=== PATIENT | female | born 1930 | race Caucasian/White ===

== ENCOUNTER 2018-02-09 19:57 | Emergency (ER) | payer MEDICARE, BC ==
[~2018-02-09] VITALS: Ht 165.1 cm; Wt 71.7 kg
[2018-02-09] MEDS ORDERED: HYDROCODONE/APAP 5/325MG 1 EACH TABLET PO ONE (20:00)
--- NOTE | 2018-02-09 20:03 | NUR ---
PT BIB [facility] WITH A C/O LLE SPASM FOR 45 BIG DATA ADMIN. PT IS NOT ABLE TO WALK AND CAN NOT FEEL HER LEG.
--- NOTE | 2018-02-09 20:08 | NUR ---
PT'S LLE STILL SPASMING.
--- NOTE | 2018-02-09 20:08 | NUR ---
PT REFUSED NORCO. PT STATED THAT SHE DOES NOT HAVE PAIN.
--- NOTE | 2018-02-09 20:08 | NUR ---
CALLED PATIENT'S SON ROSSI HE DID NOT ANSWER SO I LEFT A VOICEMAIL WITH CALL BACK NUMBER.
--- NOTE | 2018-02-09 20:10 | NUR ---
NEW IV STARTED ON RAC, 20G. BLOOD DRAWN AND SENT TO LAB.
[2018-02-09 20:20] LABS: BASOPHILS % (AUTO) 0.3 % (0.0-2.0); EOSINOPHILS % (AUTO) 0.9 % (0.0-6.0); HEMATOCRIT 41 % (33-45); HEMOGLOBIN 13.9 g/dL (11.5-14.8); LYMPHOCYTES # (AUTO) 1.9 /CMM (0.8-4.8); LYMPHOCYTES % (AUTO) 19.8 % (20.0-44.0); MEAN CORPUSCULAR HGB CONC 34 g/dl (31.0-36.0); MEAN CORPUSCULAR VOLUME 92 fL (82-100); MONOCYTES # (AUTO) 1.5 /CMM (0.1-1.30); MONOCYTES % (AUTO) 15.6 % (2.0-12.0); NEUTROPHILS # (AUTO) 6.1 /CMM (1.8-8.9); NEUTROPHILS % (AUTO) 63.4 % (43.0-81.0); PLATELET COUNT (AUTO) 195 /CMM (150-450); RDW COEFFICIENT OF VARIATION 15.1 (11.5-15.0); RED BLOOD CELL COUNT(AUTO) 4.48 MIL/uL (4.0-5.2); WHITE BLOOD COUNT (AUTO) 9.6 K/uL (4.3-11.0)
[2018-02-09 20:27] LABS: CARBON DIOXIDE 31 mmol/L (21-32); CHLORIDE 107 mmol/L (98-107); CREATININE 1.2 mg/dL (0.6-1.3); GLUCOSE 116 mg/dL (74-106); POTASSIUM 4.5 mmol/L (3.5-5.1); SODIUM SERUM 144 mmol/L (136-145); UREA NITROGEN, BLOOD 18 mg/dL (7-18)
[2018-02-09] MEDS ORDERED: LORAZEPAM INJ 2 MG/ML VIAL ONE (20:28)
[2018-02-09] MEDS ORDERED: LORAZEPAM INJ 2 MG/ML VIAL IV ONE (20:30)
--- NOTE | 2018-02-09 20:50 | NUR ---
PT IS C/O LLE CALF CRAMPING PAIN WITH SPASM. PT'S CALF WAS MASSAGED.
[2018-02-09] MEDS ORDERED: DEXAMETHASONE SOD PHOSPHATE 10 MG/ML VIAL ONE (20:57)
[2018-02-09] MEDS ORDERED: KETOROLAC TROMETHAMINE INJ 30 MG/ML VIAL ONE (20:58)
--- NOTE | 2018-02-09 20:58 | NUR ---
PT REC'D MEDICATION ORDERED.
[2018-02-09] MEDS ORDERED: KETOROLAC TROMETHAMINE INJ 30 MG/ML VIAL IV ONE (21:00)
[2018-02-09] MEDS ORDERED: DEXAMETHASONE SOD PHOSPHATE 10 MG/ML VIAL IV ONE (21:00)
--- NOTE | 2018-02-09 21:05 | NUR ---
PT LEFT FOR CT VIA [facility]
--- NOTE | 2018-02-09 21:07 | NUR ---
CALLED PT'S SON ROSSI AT [phone], NO ANSWER, LEFT VOICEMAIL
--- NOTE | 2018-02-09 21:08 | NUR ---
PT IS C/O LLE CALF CRAMPING WITH SPASM.
[2018-02-09 21:25] LABS: BAND % (MANUAL) 3 % (0.0-5.0); BASOPHILS % (MANUAL) 0 % (0.0-2.0); EOSINOPHILS % (MANUAL) 1 % (0-4); LYMPHOCYTES % (MANUAL) 22 % (16-48); MONOCYTES % (MANUAL) 11 % (0-11.0); NEUTROPHILS % (MANUAL) 63 (42-76)
--- NOTE | 2018-02-09 21:30 | NUR ---
PT WAS C/O LEG CRAMP WITH THE SPASM. LLE (CALF) MASSAGED. CRAMP SUBSIDED.
--- NOTE | 2018-02-09 21:50 | NUR ---
PT'S SON, ROSSI, CALLED BACK. PER THE PT'S REQUEST, ROSSI WAS NOTIFIED RE: PT'S STATUS. ROSSI TO COME TO THE ER.
--- NOTE | 2018-02-09 22:08 | NUR ---
PT'S SON AND DAUGHTER IN [place] IS AT THE BEDSIDE.
--- NOTE | 2018-02-09 22:30 | NUR ---
PT WAS NOT ABLE TO STAND OR PUT WEIGHT ON LLE. PT STATED THAT SHE COULD NOT FEEL HER FEET. PT'S LLE IS STILL SPASMING.
--- NOTE | 2018-02-09 23:53 | NUR ---
PT IS ABLE TO LIFT THE LLE WITHOUT PROBLEM. SPASM STILL ONGOING.
--- NOTE | 2018-02-10 00:35 | NUR ---
DR. MOSLEY IS AT THE BEDSIDE SPEAKING TO THE PT AND HER FAMILY.
--- NOTE | 2018-02-10 01:00 | NUR ---
Patient discharged to home in stable condition. Written and verbal after care instructions given. Patient verbalizes understanding of instruction. PT LEFT VIA WC. PT'S VSS. NAD NOTED. PT'S SON IS DRIVING PT HOME.
[2018-02-10 02:33] VITALS: BP 136/82
== END 2018-02-10 01:00 | disposition home or self-care (01) ==
LOC: ER 19:59
DX: M62.838 Other muscle spasm (principal); R20.0 Anesthesia of skin; E07.9 Disorder of thyroid, unspecified; E78.00 Pure hypercholesterolemia, unspecified; Z88.0 Allergy status to penicillin; Z85.118 Personal history of other malignant neoplasm of bronchus and lung
CPT/HCPCS: 36415; 72131; 80048; 85025; 87081; 96374; 96375; 99285; A4606; J1100; J1885; J2060; Z7610